=== PATIENT | female | born 1985 | race Caucasian/White ===

== ENCOUNTER 2020-09-10 16:47 | Outpatient (REF) | payer OTHER, SELFPAY ==
[2020-09-10 17:11] LABS: COVID-19 Test Negative (Negative); IDNOW Serial# 55D5AD1C
== END 2020-09-10 16:48 | disposition home or self-care (01) ==
LOC: HO.EMPCOV 16:47
PROVIDERS: Visit Provider Internal Medicine
DX: Z20.828 Contact with and (suspected) exposure to other viral communicable diseases (principal)
CPT/HCPCS: 87635; C9803

== ENCOUNTER 2020-10-08 09:31 | Outpatient (REF) | payer OTHER, SELFPAY ==
[2020-10-08 09:48] LABS: COVID-19 Test Negative (Negative)
== END 2020-10-08 09:32 | disposition home or self-care (01) ==
LOC: HO.EMPCOV 09:31
PROVIDERS: Visit Provider Internal Medicine
DX: Z20.822 Contact with and (suspected) exposure to COVID-19 (principal)
CPT/HCPCS: 36415; 87635; C9803

== ENCOUNTER 2023-12-12 08:33 | Outpatient (AMB) | payer OTHER, SELFPAY ==
--- NOTE | 2023-12-12 08:52 | MHC.OFFWIV ---
Intake Vital Signs 12/12/23 08:53 Height 5 ft 4 in Weight 292 lb BMI 50.1 BP 112/80 Blood Pressure Location Lt brachial Position Sitting Pulse 90 Pulse Source Pulse Oximeter Temp 97.9 F Temp Source Temporal Artery Scan Pulse Oximetry (%) 99 Oxygen Delivery Method Room Air Intake Visit Reasons: EP [facility] ([facility]) Intake Note: pt is here today for pink eye started yesterday Patient Tobacco Use Status: Never used Tobacco Allergies amoxicillin Allergy (Unknown, Verified 12/12/23 09:19) Unknown Medication List - Last Reconciled 12/12/23 by BENY Dumas ofloxacin 0.3% put 1-2 drps into affected eye(s) every 2-4 h x 2 days, then 1-2 drps 4 times/day days 3-7 ophthalmic (eye) Do you need a note to return to daycare/school/sports/work: Yes HPI HPI Comments History of Present Illness Details Patient is a 38-year-old female in today with a sick visit. Patient states for the past days she has developed discomfort, discharge and her right eye. Denies any trauma to the area. States that she has been around family members a sick. Does have some sensitivity to light. States this feels like conjunctivitis that she has had previously. Denies fever, shortness of breath, dizziness, headache. [facility] Social History Patient Tobacco Use Status: Never used Tobacco Review of Systems Const All systems reviewed & are unremarkable except as noted in HPI and below Eyes Reports eye discharge, Reports irritation and Reports photophobia Physical Exam Vital Signs: Last Vital Signs Temp 97.9 F 12/12/23 08:53 Pulse 90 12/12/23 08:53 BP 112/80 12/12/23 08:53 Pulse Ox 99 12/12/23 08:53 Oxygen Delivery Method Room Air 12/12/23 08:53 BMI result Body Mass Index 50.1 Vital signs reviewed stable Const Other: Appearance: Alert.? Oriented X3.? No acute distress.? Head: Normocephalic, atraumatic. Eyes: Pupils equal, round and reactive to light.?Right eye + erythema right eye sclera. scant discharge. + light sensitivity. Neck: Normal inspection.? Neck supple.? CVS: Normal heart rate and rhythm.? Pulses normal.? Respiratory: No respiratory distress.? Breath sounds normal.? Neuro: Oriented X 3.? No motor deficit.? No sensory deficit. CN 2-12 intact Eyes Direct Ophthalmoscopy: photophobia Assessment & Plan Assessment & Plan (1) Conjunctivitis, right eye: Comment: Patient will be given ofloxacin to be taken as directed. Patient has been educated on signs of worsening symptoms and when to report back to the walk-in or when to present to the ED. Code(s): H10.9 - Unspecified conjunctivitis Qualifiers: Conjunctivitis type: unspecified Qualified Code(s): H10.9 - Unspecified conjunctivitis Plan: Take your medications as prescribed. If you were prescribed antibiotics today, it is important that you take your medication to their entirety, do not skip any doses, do not finish them early. Follow-up with your primary care provider this week. Return to the emergency department with new or worsening symptoms. Such as fevers, chills, chest pain, shortness of breath, nausea, vomiting, dizziness, headache, vision changes, lethargy In case of emergency call 911 Plan Follow-up with PCP. Medications: New ofloxacin 0.3% put 1-2 drps into affected eye(s) every 2-4 h x 2 days, then 1-2 drps 4 times/day days 3-7 ophthalmic (eye) 5 mL 0RF Coding Level of Care Code New Pt Level 3 (09730) Diagnoses Conjunctivitis of right eye, unspecified conjunctivitis type H10.9 Conjunctivitis type: unspecified Time Spent (min) 21
[2023-12-12 08:53] VITALS: BP 112/80; PULSE 90; TEMP 36.6; O2SAT 99; BMI 50.1
== END 2023-12-12 09:53 | disposition home or self-care (01) ==
PROVIDERS: Visit Provider Nurse Practitioner Primary Care
DX: H10.9 Unspecified conjunctivitis (principal)
CPT/HCPCS: 99203